=== PATIENT | female | born 2000 | race African-American/Black ===

== ENCOUNTER 2024-04-26 20:55 | Emergency (ER) | payer MEDICAID ==
[~2024-04-26] VITALS: Ht 162.6 cm; Wt 80.7 kg
[2024-04-26 21:33] VITALS: BP 120/85; PULSE 82; RESP 18; TEMP 98.3; O2SAT 100
[2024-04-26] MEDS ORDERED: ACET325T52 MT (21:53)
[2024-04-26] MEDS ORDERED: BENZ1LOZ73 MT (21:53)
== END 2024-04-26 22:29 | disposition home or self-care (01) ==
LOC: ER 20:55
DX: J02.9 Acute pharyngitis, unspecified (principal)
CPT/HCPCS: 99282

== ENCOUNTER 2024-08-09 10:45 | Emergency (ER) | payer MEDICAID ==
[~2024-08-09] VITALS: Ht 167.6 cm; Wt 65.0 kg
[~2024-08-09 10:45] MED LIST: ACET325T52 MT; BENZ1LOZ73 MT
[2024-08-09 10:50] VITALS: O2SAT 99
[2024-08-09 11:08] VITALS: BP 129/67; PULSE 98; RESP 16; TEMP 97.9; O2SAT 100
[2024-08-09] MEDS: KETOROLAC 15MG/ML VIAL IM ONE (12:00)
[2024-08-09] MEDS ORDERED: NAPR-1176 MT (12:02)
== END 2024-08-09 12:15 | disposition home or self-care (01) ==
LOC: ER 10:45
DX: S60.212A Contusion of left wrist, initial encounter (principal); Y04.0XXA Assault by unarmed brawl or fight, initial encounter; Y93.89 Activity, other specified; Y92.89 Other specified places as the place of occurrence of the external cause; Y99.8 Other external cause status
CPT/HCPCS: 73090; 73110; 73120; 99284; J1885

== ENCOUNTER 2025-07-12 12:06 | Emergency (ER) | payer MEDICAID ==
[~2025-07-12] VITALS: Ht 165.1 cm; Wt 84.0 kg
[~2025-07-12 12:06] MED LIST changes: +ACET-3800 MT; -ACET325T52 MT; +NAPR-1176 MT
[2025-07-12 12:18] VITALS: O2SAT 100
[2025-07-12] MEDS ORDERED: ACET-2708 MT (15:06)
[2025-07-12 15:35] VITALS: BP 120/82; PULSE 74; RESP 16; TEMP 36.9; O2SAT 100
== END 2025-07-12 15:37 | disposition home or self-care (01) ==
LOC: ER 12:06
DX: M79.674 Pain in right toe(s) (principal); Z79.899 Other long term (current) drug therapy
CPT/HCPCS: 99283; 73630; A6449